=== PATIENT | female | born 1995 ===

== ENCOUNTER 2022-05-24 21:13 | Emergency (ER) | payer OTHER ==
[~2022-05-24] VITALS: Ht 154.9 cm; Wt 81.7 kg
[2022-05-24] MEDS ORDERED: ALBU90OI (21:26)
[2022-05-24] MEDS ORDERED: IBUP600 PO (23:48)
== END 2022-05-24 23:59 | disposition home or self-care (01) ==
LOC: ER 21:13
DX: U07.1 COVID-19 (principal); J02.9 Acute pharyngitis, unspecified
CPT/HCPCS: J1100